=== PATIENT | male | born 1960 | race Caucasian/White ===

== ENCOUNTER 2021-04-21 10:39 | Day surgery (SDC) | payer OTHER ==
[2021-04-03 12:16] VITALS: BMI 46.8
[2021-04-21] MEDS ORDERED: PROPOFOL 20 ML ONE ×4 (11:43)
[2021-04-21 13:15] VITALS: BP 120/79; PULSE 80; TEMP 98
== END 2021-04-21 14:05 | disposition home or self-care (01) ==
LOC: FASU-ENDO 10:39
PROVIDERS: ATTEND Internal Medicine Gastroenterology
PROC: 3E0H8KZ Introduction of Other Diagnostic Substance into Lower GI, Via Natural or Artificial Opening Endoscopic (ICD-10-PCS; 2021-04-21)
PROC: 0DB98ZX Excision of Duodenum, Via Natural or Artificial Opening Endoscopic, Diagnostic (ICD-10-PCS; 2021-04-21)
PROC: 0DB68ZX Excision of Stomach, Via Natural or Artificial Opening Endoscopic, Diagnostic (ICD-10-PCS; 2021-04-21)
PROC: 0DBK8ZX Excision of Ascending Colon, Via Natural or Artificial Opening Endoscopic, Diagnostic (ICD-10-PCS; principal; 2021-04-21 12:27)
DX: D50.9 Iron deficiency anemia, unspecified (principal); C18.2 Malignant neoplasm of ascending colon; K29.50 Unspecified chronic gastritis without bleeding

== ENCOUNTER 2022-06-29 10:24 | Day surgery (SDC) | payer OTHER ==
[2022-06-25 12:31] VITALS: BMI 44.1
[2022-06-29] MEDS ORDERED: PROPOFOL 40 ML ONE (10:59)
[2022-06-29 12:11] VITALS: BP 132/64; PULSE 84; RESP 18; TEMP 98
== END 2022-06-29 12:35 | disposition home or self-care (01) ==
LOC: FASU-ENDO 10:24
PROVIDERS: ATTEND Internal Medicine Gastroenterology
PROC: 0DBN8ZX Excision of Sigmoid Colon, Via Natural or Artificial Opening Endoscopic, Diagnostic (ICD-10-PCS; principal; 2022-06-29 11:16)
DX: Z12.11 Encounter for screening for malignant neoplasm of colon (principal); Z85.038 Personal history of other malignant neoplasm of large intestine; D12.5 Benign neoplasm of sigmoid colon; K63.5 Polyp of colon; K57.30 Diverticulosis of large intestine without perforation or abscess without bleeding; Z98.0 Intestinal bypass and anastomosis status
CPT/HCPCS: 88305-TC